=== PATIENT | female | born 1975 | race Hispanic/Latino ===

== ENCOUNTER 2019-04-03 16:11 | Emergency (ER) | payer SELFPAY ==
[2019-04-03] MEDS ORDERED: METFORMIN500 M2 PO (16:59)
[2019-04-03] MEDS ORDERED: CITALOPRAM40 M1 PO (17:00)
[2019-04-03] MEDS ORDERED: AMLODIPINE BESYL5 MG PO (17:00)
[2019-04-03] MEDS ORDERED: BUPROPION HCL150 M1 PO (17:00)
[2019-04-03 17:14] LABS: URINE BILIRUBIN - DIPSTICK NEGATIVE (NEGATIVE); URINE BLOOD DIPSTICK LARGE (NEGATIVE); URINE COLOR YELLOW; URINE GLUCOSE - DIPSTICK NEGATIVE (NEGATIVE); URINE KETONE NEGATIVE (NEGATIVE); URINE LEUK ESTERASE NEGATIVE (NEGATIVE); URINE NITRITE - DIPSTICK NEGATIVE (Negative); URINE PROTEIN - DIPSTICK 30 mg/dL (NEG-TRACE); URINE SPECIFIC GRAVITY >=1.030; URINE UROBILINOGEN - DIPSTICK 0.2 E.U./dL (0.2)
[2019-04-03 17:22] LABS: URINE RBC TNTC RBC/hpf (0-5); URINE SQUAMOUS EPITHELIAL CELL FEW EPI/hpf (0-FEW)
[2019-04-03] MEDS ORDERED: METRONIDAZOL500 MG PO (17:43)
[2019-04-03] MEDS ORDERED: KEFLEX500 M1 PO (17:43)
[2019-04-03 17:45] VITALS: BP 139/74
== END 2019-04-03 17:45 | disposition home or self-care (01) | DRG 696 ==
LOC: ED 16:11
DX: R30.0 Dysuria (principal); N76.0 Acute vaginitis; E11.9 Type 2 diabetes mellitus without complications; I10 Essential (primary) hypertension